=== PATIENT | male | born 1960 | race Caucasian/White ===

== ENCOUNTER 2023-08-09 22:57 | Inpatient (IN) | payer OTHER, SELFPAY ==
[2023-08-09 16:50] VITALS: BP 94/58
[2023-08-09 17:20] LABS: % Basophils 0.5 % (0-2); % Eosinophils 0.5 % (0-6); % Immature Granulocytes 0.4 % (0-0.5); % Lymphocytes 23.2 % (20.5-51.1); % Monocytes 10.7 % (1.7-9.3); % Neutrophils 64.7 % (42.2-75.2); Absolute Basophils 0.1 10^3/uL (0-0.2); Absolute Eosinophils 0.1 10^3/uL (0-0.7); Absolute Lymphocytes 2.3 10^3/uL (1.2-3.4); Absolute Monocytes 1.1 10^3/uL (0.1-0.6); Absolute Neutrophils 6.5 10^3/uL (1.4-6.5); Hematocrit 35.9 % (39.0-52.0); Hemoglobin 13.1 g/dL (13.0-18.0); Mean Corp Hgb Conc. 36.5 g/dL (33.0-37.0); Mean Corpuscular Volume 87.8 fL (80.0-94.0); Mean Platelet Volume 9.6 fL (7.4-10.4); Nucleated Red Blood Cells % 0 % (-); Platelet Count 282 10^3/uL (130-400); Red Blood Cell Count 4.09 10^6/uL (4.70-6.10); Red Cell Dist. Width 13.1 % (11.5-14.5)
[2023-08-09 17:32] LABS: Lactic Acid 2.3 mmol/L (0.7-2.0)
[2023-08-09 17:34] LABS: ALT (SGPT) 33 U/L (0-50); AST (SGOT) 39 U/L (17-59); Albumin 3.9 g/dl (3.5-5.0); Alkaline Phosphatase 79 U/L (38-126); Blood Urea Nitrogen 15 mg/dl (9-20); Calcium 9.3 mg/dl (8.4-10.2); Carbon Dioxide 18 mmol/L (22-30); Chloride 102 mmol/L (98-107); Glucose 131 mg/dl (70-99); Potassium 3.5 mmol/L (3.5-5.1); Sodium 133 mmol/L (135-145); Total Bilirubin 0.6 mg/dl (0.2-1.3); Total Protein 6.8 g/dl (6.3-8.2); eGFR > 60.00
[2023-08-09 17:37] LABS: COVID-19 Antigen Negative (Negative)
[2023-08-09 17:45] LABS: Troponin I < 0.012 ng/ml
--- NOTE | 2023-08-09 20:26 | ED.GENMED ---
History of Present Illness
General
Chief Complaint: Breathing Problem
Source: patient and spouse
Exam Limitations: none
Time Seen by Provider: 08/09/23 20:20
Travel History
Have you had any contact with someone who has COVID-19?: No
Do you have any symptoms of coronavirus? Fever > 100 degrees, chills, cough, shortness of breath, sore throat, loss of taste or smell, muscle aches, or headache?: No
History of Present Illness
History of Present Illness:
See MDM
Past History
Past History
ED Past Medical History: HTN
ED Past Surgical History: Orthopedic
Social History
Tobacco: Non-smoker
Alcohol: None
Phy Exam
Physical Exam
Physical Exam:
See MDM
Scores
Heart Failure Risk
Heart Failure Risk Score: Yes
History of Stroke or TIA: No
History of intubation for respiratory distress: No
Heart rate on ED arrival >/= 110: No
SaO2 <90% on arrival on room air: No
HR >/=110 during 3min walk test (or too ill to perform test): No
ECG has acute ischemic changes: No
Urea >/=12mmol/L (BUN 33.6mg/dL): No
Serum CO2>/=35mmol/L: No
Troponin I or T elevated to [place] Level (0.4mg/dL): No
NT-proBNP >/=5,000ng/L (5,000pg/ml): No
HF Risk Score: 0
Admission Status: LOW RISK 2.8% Consider discharge to home with f/u visit to PCP/Machine [employer]
Course
Orders/Labs/Results
Orders:
Orders
08/09/23 16:44
ECG [Electrocardiogram (*1)] Urgent
Reason for Study: Shortness of Breath
EKG- Treatment ONCE
08/09/23 17:08
CMP [Comprehensive Metabolic Panel] Urgent
Complete Blood Count/With Diff Urgent
Lactic Acid Urgent
NT-proBNP Urgent
Comment: ADD ON
Troponin I Urgent
Blood Culture Routine
KAROLINA Source: Blood/Venous
Specimen Description:
Date Specimen was Collected: 08/09/23
Time Specimen was Collected: 16:59
08/09/23 17:12
COVID-19 Antigen Urgent
Source: Nasal Swab
Influenza A+B Rapid Molecular Urgent
KAROLINA Source: Nasal Swab
Specimen Description:
08/09/23 20:20
CR Chest - 2 Views Urgent
Comment:
Reason For Exam: SOB, cough, fever
08/09/23 20:26
0.9% Sodium Chloride 1000 ml [Nss] 1,000 ml IV BOLUS
08/09/23 21:34
Add On- LAB Urgent
Tests Added?: Pro BNP
08/09/23 21:53
Azithromycin 500 mg/250 ml [Zithromax Infusion] 500 mg in 250 ml IV NOW
CefTRIAXone [Rocephin] 2,000 mg IV NOW STA
08/09/23 21:59
0.9% Sodium Chloride 1000 ml [Nss] 1,000 ml IV BOLUS
08/09/23 22:02
Sterile Water [Sterile Water For Injection] 20 ml .ROUTE .STK-MED
08/09/23 22:46
Admit/Transfer Patient As Directed
Co-Sign Provider:
Level of Care: Inpatient admission
Assign to:: Telemetry
Physician / Group: eugene
Diagnosis: pneumonia
Reason for Telemetry: Other
Other Reason for Telemetry: sepsis
Date to Stop Telemetry: 08/11/23
Time to Stop Telemetry: 11:00
Reason for Hospitalization: pneumonia
Expected length of stay greater than two midnights?: Yes
ELOS- Estimated Length of Stay in days: 3
I certify the patient meets the requirements for IP care: Yes
Code Status As Directed
Resuscitation Status: Full Code
08/09/23 22:51
Procalcitonin Routine
PCT Algorithmm Indication: Respiratory
Urinalysis Reflex To Culture Routine
Date Specimen was Collected: 08/09/23
Time Specimen was Collected: 22:49
Urine Microscopic Reflex Cult Routine
Blood Culture Routine
KAROLINA Source: Blood/Venous
Specimen Description:
Urine Culture Routine
KAROLINA Source: U
Specimen Description:
Date Specimen was Collected: 08/09/23
Time Specimen was Collected: 22:49
08/09/23 23:16
Acetaminophen [Tylenol] 650 mg PO Q4HPRN PRN
08/10/23 00:04
Ipratropium/Albuterol Sulfate [Duoneb] 3 ml INH R Q4HPRN PRN
08/10/23 00:04
Echo 2D MMode Color/Doppler Routine
Reason for Study: pulm edema
Activity As Directed
Activity Level: Out of Bed-Early Mobility
Intake/ Output As Directed
Frequency: Per unit guidelines
Vital Signs As Directed
Frequency: Per unit guidelines
Weight As Directed
Frequency: Once
Comment: on admission
Pt Eval And Treat Routine
Activity Level: As Tolerated
DX Deep Vein Thrombosis Video Routine
08/10/23 00:16
Lactic Acid Q4H
MRSA Screen Routine
KAROLINA Source: Nose
Specimen Description:
08/10/23 04:59
Basic Metabolic Panel IN AM
Complete Blood Count/No Diff IN AM
08/10/23 Breakfast
Cholesterol Lowering
At Your Request: Full Participation
Cholesterol Lowering: Sodium, 2 Gram
08/10/23 08:00
Atorvastatin [Lipitor] 20 mg PO DAILY
Paroxetine [Paxil] 40 mg PO DAILY
Valsartan [Diovan] 80 mg PO DAILY
Verapamil Extended Release [Calan Extended Release] 240 mg PO DAILY
08/10/23 18:00
Enoxaparin Sodium [Lovenox] 40 mg SC QPM
08/10/23 22:00
Azithromycin 500 mg/250 ml [Zithromax Infusion] 500 mg in 250 ml IV Q24H
CefTRIAXone [Rocephin] 1,000 mg IV Q24H
08/10/23 22:51
Legionella Urinary Antigen Routine
KAROLINA Source: U
Specimen Description:
Strep pneumoniae Antigen Routine
KAROLINA Source: U
Specimen Description:
08/11/23 11:00
DC Protocol for Telemetry ONCE
Abnormal Lab Results
08/09/23 08/09/23
17:08 22:51
RBC 4.09 L 10^6/uL
(4.70-6.10)
Hct 35.9 L %
(39.0-52.0)
MCH 32.0 H pg
(27.0-31.0)
Absolute Monos (auto) 1.1 H 10^3/uL
(0.1-0.6)
Monocytes % 10.7 H %
(1.7-9.3)
Sodium 133 L mmol/L
(135-145)
Carbon Dioxide 18 L mmol/L
(22-30)
Glucose 131 H mg/dl
(70-99)
Lactic Acid 2.3 H mmol/L
(0.7-2.0)
Urine Ketones Trace A
(Negative)
Ur Occult Blood Reflex Trace A
(Negative)
Urine Bilirubin 1+ A
(Negative)
Urine Urobilinogen 2+ A
(Neg - 1+)
Leukocyte Esterase Rfl Trace A
(Negative)
Urine RBC 3-6 A /HPF
(0-2)
Urine Bacteria (Reflex) Moderate A
(Negative)
08/09/23 17:08
08/09/23 17:08
Vital Signs
Initial and Last Documented VS:
Initial Vital Signs
Temp Pulse Resp BP Pulse Ox
101.0 F H 63 16 94/58 97
08/09/23 16:50 08/09/23 16:50 08/09/23 16:50 08/09/23 16:50 08/09/23 16:50
Last Documented Vital Signs
Temp Pulse Resp BP Pulse Ox
98.2 F 66 21 116/76 99
08/10/23 13:32 08/10/23 13:32 08/10/23 08:29 08/10/23 13:32 08/10/23 13:32
MDM/Problems Addressed
Differential Diagnosis Includes:
HPI and MDM Narrative:
63-year-old male presenting with shortness of breath and fever. Patient states he has been doing a lot of yard work recently and attributed his weakness and fatigue to over exhaustion. Patient also was blaming this on mild dehydration. However,
patient started develop a fever and worsening cough. He is becoming short of breath with minimal exertion. Patient took Tylenol just prior to arrival. Patient found be febrile. He cannot tolerate NSAIDs due to GI bleed
Blood work returning on my exam. White blood cell count normal but lactic acid elevated. Troponin negative. Chest x-ray plan pending
Physical exam
General: Weak and fatigued
HEENT: protecting airway. Dry mucous membranes
Neck: appears supple
CV: No evidence of cyanosis. Regular rate and rhythm
Resp: No accessory muscle use. Lungs clear
Abd: Non-distended
Extremities: No deformities. No leg edema or tenderness
Neuro: alert
Psych: Normal affect
Skin: Intact
Problems Addressed including Acute and Chronic Conditions affecting care:
1. Shortness of breath and fever
Acuity: acute
Prognosis: stable
Details: EKG and troponin negative. Will obtain chest x-ray. COVID and flu negative
2. Dehydration
Acuity: acute
Prognosis: stable
Details: Will give IV fluids
Updates
Chest x-ray concerning for pulmonary edema. BNP is elevated. Given the fever and concern for underlying pneumonia, patient started on antibiotics. Given the concern for new onset pulm edema, will admit
Differential Diagnosis (but not limited to): Viral syndrome, pneumonia
Testing considered: D-dimer but he is neither hypoxic nor tachycardic. No clinical signs of DVT
Drug therapy (if applicable): OTC meds, please see d/c instruction regarding Rx drugs
Amount and/or Complexity of Data Reviewed
Clinical info obtained from: Patient. Spouse states that she believes he overexerted himself with yard duty
External data reviewed: N/A
Labs I independently reviewed (but not limited to): Elevated lactic acid
Radiology: X-ray independently reviewed: Chest x-ray concerning for pulm edema and possible underlying pneumonia
Pulse Ox: not hypoxic
EKG independently reviewed: Sinus rhythm, normal axis, no STEMI
Marsh Buggy Operator: Sinus rhythm
Critical Care: N/A
Risk of Complication:
Social Determinants of health: Good social support
Discussed with other providers: Hospitalist
Escalation of Care includes Admit/Obs: Given the concern for new onset pulm edema and pneumonia, will admit
Occasional wrong word or 'sound a like' substitutions may have occurred due to the inherent limitations of voice recognition software. Read the chart carefully and recognize, using context, where substitutions have occurred.
*Critical Care Note
Total Time (30-74mins, 75-104mins- exclusive of procedures): Not Applicable
ED Attending Note
-
Portions of this chart may have been created with voice recognition software.� Occasional wrong word or��sound alike� substitutions may have occurred due to the inherent limitations of voice recognition software.
Discharge Plan
Departure
Patient Disposition: Admit
Date of Disposition: 08/09/23
Time of Disposition: :
Admit to: Telemetry
Presentation/result/management discussed w/ accepting MD/DO: Hospitalist
Discharge Problem:
PNA (pneumonia), Pulmonary edema, GARNICA (dyspnea on exertion)
Interventions
Interventions:
*Risk Screen - Suicide Last Done: 08/10/23 01:15
*General Assessment Last Done: 08/10/23 01:15
*Neglect/Abuse Screening Last Done: 08/10/23 01:15
ED- Fall Risk Assessment Last Done: 08/10/23 01:15
*ED COVID-19 Vaccine History Last Done: 08/10/23 01:15
*Nursing Disposition Last Done: 08/10/23 14:40
ED- Cardiac Assessment Last Done: 08/09/23 20:30
ED- Pulmonary Assessment Last Done: 08/09/23 20:30
Discharge Date and Time
Discharge Date/Time: 08/10/23 14:40
[2023-08-09 20:27] VITALS: BP 81/59
[2023-08-09] MEDS: NSS 1000 IV ×2 (20:32→22:05)
[2023-08-09 20:33] VITALS: BP 87/63
[2023-08-09 21:24] VITALS: BP 79/59
[2023-08-09 21:30] VITALS: BP 81/64
[2023-08-09 22:01] VITALS: BP 80/64
[2023-08-09] MEDS: ROCEPHIN 2000 MG IV (22:06)
[2023-08-09] MEDS: ZITHROMAX INFUSION 250 IV (22:10)
--- NOTE | 2023-08-09 22:23 | HPS.HSE ---
Addendum entered and electronically signed by Jaqui Esqueda MD 08/15/23 13:25:
Medications on admission are unable to be verified or confirmed at this time.
Original Note:
Family Physician
-
Family Physician: ALBERTO MOLINA MD
Chief Complaint
-
sob
cough
chills
History of Present Illness
63-year-old with past medical history of hypertension, hyperlipidemia, anxiety, depression presents with short of breath worse with activity for 5 to 7 days. Patient feels better when sitting up. Patient denies chest pain. Patient complained of
cough with greenish sputum. Patient complained of weakness. Complained of headache. Denies dizziness or syncopal episode. Patient denied chest pain abdominal pain, nausea, vomiting. He had diarrhea 5 days ago patient denied dysuria hematuria
but noted to have dark urine today. Patient also complaint of decreased urine output.
Elevated lactic acid, chest x-ray with mild pulmonary edema patient received fluids in ER. Patient also received ceftriaxone and azithromycin in ER admitted for further management.
Medical History
Past Medical History
Past Medical History: Reports Other
Additional Past Medical History:
Hypertension
Hyperlipidemia
Depression
Anxiety
Past Surgical History: Reports Other
Additional Past Surgical History:
Right shoulder surgery
Social History
Tobacco: Non-smoker
Alcohol: None
Drug: None
Personal:
Living: With Family
Family History
Family History: Not pertinent
Allergies / Home Medications
Allergies reflects when Allergies were last updated in [employer].
Home Medications with original date entered in [employer]
Allergy/Medication List:
Allergies
Allergy/AdvReac Type Severity Reaction Status Date / Time
NKA - No Known Allergies Allergy Uncoded 07/14/07 08:38
Review of Systems
-
Constitutional: Reports Fatigue and Chills
EENT: Reports No Symptoms
Respiratory: Reports Cough and Trouble Breathing
Cardiac: Reports No Symptoms
Abdomen/GI: Reports Diarrhea
: Reports No Symptoms
Musculoskeletal: Reports No Symptoms
Skin: Reports No Symptoms
Neurological: Reports Headache
Endocrine: Reports No Symptoms
Hematologic/Lymphatic: Reports No Symptoms
Psych: Reports No Symptoms
Physical Exam
Vital Signs
Vital Signs
Temp Pulse Resp BP Pulse Ox
98.1 F 61 21 81/64 100
08/09/23 20:35 08/09/23 21:30 08/09/23 21:30 08/09/23 21:30 08/09/23 21:30
Physical Exam
General: Well Developed, Well Nourished and No Apparent Distress
HEENT: NormoCephalic, Moist mucous membranes and Atraumatic
Respiratory: Clear
Cardiac: S1/S2 and Regular Rhythm; No Murmur or Rub
GI: Soft, Non Tender, Non Distended and Normal Bowel Sounds; No Organomegaly
Rectal: Deferred by Provider
Musculoskeletal: No Clubbing, No Cyanosis and No Edema
Skin: No Rash
Neuro: AO x 3 and Nonfocal/grossly intact
Psych: Calm
Laboratory Results
-
08/09/23 17:08
08/09/23 17:08
Laboratory Results
Lactic Acid 2.3 mmol/L (0.7-2.0) H 08/09/23 17:08
Total Bilirubin 0.6 mg/dl (0.2-1.3) 08/09/23 17:08
AST 39 U/L (17-59) 08/09/23 17:08
ALT 33 U/L (0-50) 08/09/23 17:08
Alkaline Phosphatase 79 U/L (38-126) 08/09/23 17:08
Troponin I < 0.012 ng/ml 08/09/23 17:08
Data Reviewed
-
Diagnostic Radiology: Report Reviewed by me
Lab Data: Labs Reviewed by me
Impression/Plan
-
# Short of breath with exertion likely from pulmonary edema
-BNP 705
-Chest x-ray with mild pulmonary edema
-Troponin negative
-COVID-negative
-Negative for influenza AMB
-Obtain echocardiogram in a.m.
# Sepsis fever likely from pneumonia
-Lactic 2.3, hypotension
-Azithromycin and ceftriaxone continued
-Blood pressure improved with fluids
-Continue to monitor vital signs
-Trend lactic
-nebs prn for sob/wheezing
# History of hypertension
-Verapamil and losartan continued with hold parameters
# Hyperlipidemia
-Statin continued
# Depression/anxiety
-Paxil continued
# DVT prophylaxis
-Lovenox subcu
# CODE STATUS
-Full code
[2023-08-09 22:35] LABS: NT-proBNP 705 pg/ml
--- NOTE | 2023-08-09 22:51 | W.PN.UPDATE ---
Update Note
Progress Note Update
HPI: 63-year-old with past medical history of hypertension, hyperlipidemia, anxiety, depression; presents with short of breath/GARNICA, productive cough ongoing for 5 to 7 days. He also complained of chills, and was noted to have a fever in the
emergency room.
Patient denies to chest pain, N/V, abd pain etc.
He had diarrhea 5 days ago. No urinary symptoms.
In the ED, his CXR noted mild pulm edema. His blood pressure was initially low, which improved following IV fluid resuscitation. He received IV antibiotics ceftriaxone azithromycin for empiric CAP coverage.
A/P:
# Short of breath, GARNICA and cough with fever, admit for CAP
# Sepsis POA likely from CAP
# Mild lactic acidosis POA
CXR noted mild pulmonary edema, BNP 705
Symptoms improved following IV fluid resuscitation in ER, will hold additional maintenance IV fluid given chest x-ray read with mild pulmonary edema.
Continue with empiric antibiotics ceftriaxone azithromycin
check MRSA screen, procal, sputum Cx
follow blood Cx
Follow lactate
COVID and Flu are negative
nebs prn for sob/wheezing
Check echocardiogram for mild pulm edema
# hypertension
Cont LEAD DIE MOLDER losartan with hold parameter
# Migraine
Pt takes verapamil for migraine headache
cont LEAD DIE MOLDER verapamil with hold parameter
# Hyperlipidemia
Statin continued
# Depression/anxiety
Paxil continued
DVT prophylaxis: Lovenox subcu
CODE STATUS: Full code
[2023-08-09 23:02] LABS: Urine Albumin Trace (Neg - Trace); Urine Bilirubin 1+ (Negative); Urine Character Clear (Clear); Urine Color Yellow; Urine Glucose Negative (Negative); Urine Ketone Trace (Negative); Urine Leukocyte Trace (Negative); Urine Nitrite Negative (Negative); Urine Occult Blood Trace (Negative); Urine Urobilinogen 2+ (Neg - 1+)
[2023-08-09 23:10] LABS: Urine Mucus Few
[2023-08-09 23:11] LABS: Urine Hyaline Cast >15 /LPF (0-2)
[2023-08-09 23:12] LABS: Urine Bacteria Moderate (Negative)
[2023-08-09 23:33] LABS: Procalcitonin 0.05 ng/ml (0.0-0.25)
[2023-08-10 00:13] VITALS: BP 92/57
[2023-08-10] MEDS: TYLENOL 650 MG PO ×2 (00:16→08:49)
[2023-08-10 00:36] VITALS: BMI 24.8
[2023-08-10 00:54] LABS: Lactic Acid 1.3 mmol/L (0.7-2.0)
[2023-08-10 05:01] VITALS: BP 97/71
[2023-08-10 05:27] LABS: Hematocrit 31.1 % (39.0-52.0); Mean Corp Hgb Conc. 35.4 g/dL (33.0-37.0); Mean Corpuscular Hgb 32.2 pg (27.0-31.0); Mean Corpuscular Volume 90.9 fL (80.0-94.0); Platelet Count 232 10^3/uL (130-400); Red Blood Cell Count 3.42 10^6/uL (4.70-6.10); Red Cell Dist. Width 13.3 % (11.5-14.5); White Blood Cell Count 8.3 10^3/uL (4.8-10.8)
[2023-08-10 05:56] LABS: Blood Urea Nitrogen 16 mg/dl (9-20); Calcium 8.2 mg/dl (8.4-10.2); Carbon Dioxide 20 mmol/L (22-30); Chloride 108 mmol/L (98-107); Estimated Creatinine Clearance 65 ml/min; Glucose 106 mg/dl (70-99); Potassium 3.7 mmol/L (3.5-5.1); Sodium 138 mmol/L (135-145); eGFR > 60.00
[2023-08-10 07:32] VITALS: BP 95/69
[2023-08-10 08:29] VITALS: BP 98/62
[2023-08-10] MEDS: PAXIL 40 MG PO (08:45)
[2023-08-10] MEDS: LIPITOR 20 MG PO (10:29)
--- NOTE | 2023-08-10 11:52 | W.PN.HOSP.TC ---
Today's Communication/Plan
-
possible d/c if ECHO WNL
Assessment / Plan
Assessment / Plan
pt is a 63 year old male
fever with lactic acidosis--suspect UTI as opposed to CAP--cont rocephin for now--lactic acidosis resolved with IVF--blood and urine cultures pending--CXR with mild pulm edema (no reading of pna at all)--COVID and FLU neg--procalcitonin neg--stop
zithromax--change rocephin to oral--NOT requiring O2--ECHO pending
essentia hypertension-- BP running lower--Cont POWER AND RECOVERY SUPERINTENDENT losartan with hold parameter
Migraine--Pt takes verapamil for migraine headache--cont POWER AND RECOVERY SUPERINTENDENT verapamil with hold parameter
Hyperlipidemia--Statin continued
Depression/anxiety--Paxil continued
DVT prophylaxis: Lovenox subcu
CODE STATUS: Full code
Anticipated Discharge: Today
Subjective/Interval History
-
Date of Service: August 10, 2023
pt ready for d/c feels good
Objective Data
-
Labs:
Laboratory Results
08/10/23
04:59
WBC 8.3
Hgb 11.0 L
Hct 31.1 L
Plt Count 232
Sodium 138
Potassium 3.7
Chloride 108 H
Carbon Dioxide 20 L
BUN 16
Creatinine 1.2
Glucose 106 H
Calcium 8.2 L
Vital Signs:
max temp for 24 hours
08/09/23
16:50
Temp 101.0 F H
Vital Signs
Temp Pulse Resp BP Pulse Ox
98.2 F 56 21 98/62 95
08/10/23 07:50 08/10/23 08:29 08/10/23 08:29 08/10/23 08:29 08/10/23 09:02
Review of Systems
-
All other systems: Reviewed and negative
Physical Exam
-
General: Well Developed, Well Nourished and No Apparent Distress
HEENT: Normocephalic and Atraumatic; Negative Oxygen
Respiratory: Clear to Auscultation; Negative Wheezes, Rales, Rhonchi or Crackles
Cardiac: Regular Rhythm and S1/S2; Negative Murmur
GI: Soft, Nontender, Nondistended and Normal Bowel Sounds
Musculoskeletal: No Clubbing, No Cyanosis and No Edema
Skin: Warm
Neuro: Awake
--- NOTE | 2023-08-10 11:53 | CM ---
Patient seen at bedside with physician and . Patient stated that he lives with his in a 3 story home. Patient has no DME and his PCP is Dr. Claire in [place], and [facility] in [place] [facility]. Patient plan is for discharge home with no
needs. Patient stated that he has no DME at home and he does not have any other concerns at this time. CM will continue to follow for discharge planning needs.
Plan; home with no needs.
[2023-08-10 13:32] VITALS: BP 116/76
[2023-08-10 14:11] VITALS: BP 116/76; PULSE 89; O2SAT 97
--- NOTE | 2023-08-10 16:07 | W.DCSUMMARY ---
Discharge Summary
Discharge Data
Date of Admission: 08/09/23
Date of Discharge: 08/10/23
-
Pending Results: Yes
Additional Pending Results:
blood and urine cultures are pending
Hospital Course
Primary care physician : Alberto Claire
Principal Discharge diagnosis : Fever with lactic acidosis suspect urinary tract infection as opposed to pneumonia
Chronic Discharge diagnosis : Essential hypertension, migraine, hyperlipidemia, depression/anxiety
Hospital Course : Patient is a 63-year-old male with a history of essential hypertension who presented with shortness of breath which has been worse with activity for 5 to 7 days. He feels better when sitting up and denies chest pain. He complains
of cough with green sputum and weakness. He also complained of headache but denies any dizziness or syncope. Patient also stated he had diarrhea 5 days prior to this admission but denied dysuria or hematuria. He was complaining of dark urine and
decreased urine output. Workup in the emergency department found him to have an elevated lactic acid with a chest x-ray that showed mild pulmonary edema patient was admitted.
Problem #1: Fever with lactic acidosis suspect urinary tract infection as opposed to pneumonia. Patient was initially started on IV ceftriaxone and Zithromax for presumed pneumonia. However, urinalysis is positive and I suspect fever and lactic
acid more so from urinary tract infection as opposed to pneumonia. Chest x-ray was read as mild pulmonary edema. That is likely more the cause of his shortness of breath at this time. Patient was given IV fluids for elevated lactic acid and
presumed sepsis. Patient is much improved this morning, is no longer short of breath and is waiting for his echocardiogram. Echocardiogram returned with normal ejection fraction and mildly elevated pulmonary artery pressures. Patient was
transitioned over to oral cephalexin to cover his urinary tract (and also possible pneumonia). Blood and urine cultures are still pending at this time.
Problem #2: All other medical issues. These include Essential hypertension, migraine, hyperlipidemia, depression/anxiety. These medical issues were stable during his hospitalization. Medications were continued as able.
Patient is stable for discharge home at this time. He is afebrile, lactic acid is within normal limits, he is not requiring any oxygen and his white blood cell count is normal. He should follow-up with his primary care physician as directed.
Blood and urine cultures are still pending.
Important imaging findings :
CHEST X-RAY IMPRESSION:
Mild pulmonary edema.
Discharge Plan
-
Patient Disposition: Home (Routine Discharge)
Discharge Diagnosis/Procedures: Fever with lactic acidosis suspect urinary tract infection rather than pneumonia, essential hypertension, migraine, hyperlipidemia, depression/anxiety
Condition: Good
Diet: Low Cholesterol, Low Sodium and Restrict fluids to 64 oz
Activity: As tolerated
Driving Restrictions: As prior to admission
Bathing Restrictions: None
Specialty Instructions: Weigh Daily- Call MD for wt gain/loss 3 lbs overnight/5 lbs in 1 week
Referrals:
ALBERTO CLAIRE MD [Family Provider] - in less than 1 week
Prescriptions:
New
acetaminophen 325 mg Tablet
650 mg PO Q4HPRN PRN (Reason: if temp > 101 F) Qty: 0 0RF
cephalexin 500 mg capsule
500 mg PO QID Qty: 20 0RF
Continued
atorvastatin 20 mg Tablet
20 mg PO DAILY
valsartan 80 mg Tablet
80 mg PO DAILY
verapamil 240 mg Tablet Extended Release
240 mg PO DAILY
paroxetine HCl [Paxil] 40 mg Tablet
40 mg PO DAILY
Discharge Orders:
Discharge Patient (As Directed); Ordered 08/10/23
Ordered By: Charu Wick
Care Plan Goals
Care Plan Goals:
Problem: Pain
Goal: Experience adequate pain control and/or relief of pain.
Instructions: Use medication for pain management as prescribed by your physician. Use non-medication pain management strategies/techniques as directed by your health care team.
Discharge Date and Time
Discharge Date/Time: 08/10/23 14:43
Print Language: MONGOLIAN
== END 2023-08-10 14:43 | disposition home or self-care (01) | DRG 872 ==
LOC: ED 22:57
PROVIDERS: Emergency Medicine; Registered Nurse; ADMITTING PHYSICIAN Internal Medicine; ATTENDING PHYSICIAN Internal Medicine; EMERGENCY PHYSICIAN Student in an Organized Health Care Education/Training Program; FAMILY PHYSICIAN General Practice
DX: A41.89 Other specified sepsis (principal); E87.20 Acidosis, unspecified; J81.1 Chronic pulmonary edema; N39.0 Urinary tract infection, site not specified; I10 Essential (primary) hypertension; E78.5 Hyperlipidemia, unspecified; F41.9 Anxiety disorder, unspecified; F32.A Depression, unspecified; G43.909 Migraine, unspecified, not intractable, without status migrainosus; Z11.52 Encounter for screening for COVID-19
CPT/HCPCS: 71046; 80048; 80053; 81003; 81015; 83605; 83880; 84145; 84484; 85025; 85027; 87040; 87070; 87086; 87449; 87502; 87811; 87899; 93005; 93306; 97161; Q9950